=== PATIENT | female | born 1970 | race African-American/Black ===

== ENCOUNTER 2020-11-03 23:59 | Inpatient (IN) | payer MEDICAID ==
[~2020-11-03] VITALS: Ht 162.6 cm; Wt 76.7 kg
[2020-11-04] MEDS ORDERED: SODIUM CHLORIDE 0.9% 1,000 ML IV ONE (01:30)
[2020-11-04] MEDS ORDERED: INSULIN REGULAR (HUMULIN R) 300UNITS/3ML VIAL SUBCUT ONE (01:30)
[2020-11-04 02:01] LABS: BG BASE EXCESS -26.2 mmol/L (-2.0-2.0); BG CARBOXYHEMOGLOBIN 0.4 % (0.5-1.5); BG DEOXYHEMOGLOBIN 2.4 % (0.0-5.0); BG FRACTION INSPIRED OXYGEN 21; BG METHEMOGLOBIN 0.5 % (0.0-1.5); BG OXYGEN SATURATION 97.6 % (92.0-98.5); BG OXYHEMOGLOBIN 96.7 % (94.0-97.0); BG PCO2 12.3 mmHg (35.0-45.0); BG PH 7.009 (7.350-7.450); BG PO2 117.5 mmHg (75.0-100.0); BG SAMPLE SITE RIGHT BRACHIAL; BG TOTAL HEMOGLOBIN 15.4 g/dL (12.0-18.0); BG VENT MODE ROOM AIR
[2020-11-04] MEDS ORDERED: INSULIN REGULAR (DRIP) 100 UNITS in SODIUM CHLORIDE 0.9% 99 ML IV SCH ×2 (02:15→15:00)
[2020-11-04 02:21] LABS: BASOPHILS % 0.3 % (0.0-2.0); EOSINOPHILS % 0.1 % (0.0-5.0); HEMATOCRIT. 53.1 % (36.0-48.0); LYMPHOCYTES % 11.1 % (20.0-50.0); MEAN CORPUSCULAR HEMOGLOBIN 23.1 pg (28.0-32.0); MEAN CORPUSCULAR VOLUME 81.5 fL (81.0-99.0); MEAN PLATELET VOLUME 10.6 fl (7.4-10.4); NEUTROPHILS % 80.5 % (40.0-76.0); PLATELET 292 x1000/uL (130-400); RED BLOOD CELL COUNT 6.52 mill/uL (4.2-5.4); RED CELL DISTRIBUTION WIDTH 17.1 % (11.6-14.6)
[2020-11-04 02:25] LABS: CLARITY URINE CLEAR (CLEAR); COLOR URINE YELLOW (YELLOW); KETONES URINE 4+ (NEGATIVE); LEUKOCYTE ESTERASE URINE NEGATIVE (NEGATIVE); NITRITE URINE NEGATIVE (NEGATIVE); OCCULT BLOOD URINE 1+ (NEGATIVE); PROTEIN URINE 2+ (NEGATIVE); UROBILINOGEN URINE 0.2 E.U./dL (0.2-1.0)
[2020-11-04 02:28] LABS: CHLORIDE 98 mEq/L (98-107)
[2020-11-04 02:35] LABS: BETA HYDROXYBUTYRATE 7.5 mMol/L (0.0-0.3)
[2020-11-04 02:37] LABS: HCG SCREEN NEGATIVE
[2020-11-04] MEDS: POTASSIUM CHLORIDE 20MEQ TABLET SR PO SCH ×2 (05:38→06:46)
[2020-11-04] MEDS ORDERED: CLONIDINE 0.1MG TABLET PO PRN (14:45)
[2020-11-04] MEDS ORDERED: DEXTROSE 50% WATER 50ML SYRINGE IV PRN ×2 (14:45)
[2020-11-04] MEDS ORDERED: ACETAMINOPHEN 325MG TABLET PO PRN (14:45)
[2020-11-04] MEDS ORDERED: HYDROCODONE/ACETAMINOPHEN 5/325MG TABLET PO PRN (14:45)
[2020-11-04] MEDS ORDERED: MAGNESIUM/ALUMINUM HYDROXIDE/SIMETHICONE 30ML UDC PO PRN (14:45)
[2020-11-04] MEDS ORDERED: ONDANSETRON HCL 4MG/2ML INJ IV PRN (14:45)
[2020-11-04] MEDS: DEXT 5%/0.45% NACL 1000ML 1,000 ML IV SCH (15:17)
[2020-11-04 15:51] LABS: BG BASE EXCESS -17.4 mmol/L (-2.0-2.0); BG CARBOXYHEMOGLOBIN 0.9 % (0.5-1.5); BG DEOXYHEMOGLOBIN 1.8 % (0.0-5.0); BG FRACTION INSPIRED OXYGEN 21; BG HCO3 ACT 7.1 mmol/L (22.0-26.0); BG METHEMOGLOBIN 0.4 % (0.0-1.5); BG OXYGEN SATURATION 98.2 % (92.0-98.5); BG OXYHEMOGLOBIN 96.9 % (94.0-97.0); BG PCO2 16.3 mmHg (35.0-45.0); BG PH 7.255 (7.350-7.450); BG PO2 100.4 mmHg (75.0-100.0); BG SAMPLE SITE LEFT RADIAL; BG TOTAL HEMOGLOBIN 14.7 g/dL (12.0-18.0); BG VENT MODE ROOM AIR
[2020-11-04] MEDS: BLOOD SUGAR DIAGNOSTIC STRIP TEST SCH ×2 (16:30→21:52)
[2020-11-04] MEDS ORDERED: KCL 20MEQ/100ML PREMIX 100 ML IV SCH (18:00)
[2020-11-04] MEDS: OMEPRAZOLE 20MG CAPSULE EXTENDED RELEASE PO SCH (19:02)
[2020-11-04 20:35] LABS: CHLORIDE 109 mEq/L (98-107)
[2020-11-04] MEDS ORDERED: NALOXONE HCL 0.4MG/ML VIAL IV PRN (21:15)
[2020-11-05] VITALS (21 sets, daily range): BP systolic 95–133; BP diastolic 59–87
[2020-11-05] MEDS: BLOOD SUGAR DIAGNOSTIC STRIP TEST SCH ×24 (00:06→23:45)
[2020-11-05] MEDS: DEXT 5%/0.45% NACL 1000ML 1,000 ML IV SCH ×4 (01:32→22:45)
[2020-11-05 07:11] LABS: CHLORIDE 111 mEq/L (98-107)
[2020-11-05] MEDS: OMEPRAZOLE 20MG CAPSULE EXTENDED RELEASE PO SCH (07:19)
[2020-11-05 07:22] LABS: PHOSPHORUS 0.7 mg/dL (2.5-4.9)
[2020-11-05 12:16] LABS: BASOPHILS % 0.4 % (0.0-2.0); EOSINOPHILS % 1.1 % (0.0-5.0); HEMATOCRIT. 42.4 % (36.0-48.0); HEMOGLOBIN. 13.5 g/dL (12.0-16.0); LYMPHOCYTES % 21.1 % (20.0-50.0); MONOCYTES % 12.3 % (2.0-8.0); NEUTROPHILS % 65.1 % (40.0-76.0); RED BLOOD CELL COUNT 5.89 mill/uL (4.2-5.4); RED CELL DISTRIBUTION WIDTH 16.1 % (11.6-14.6)
[2020-11-05 12:17] LABS: CHLORIDE 111 mEq/L (98-107)
[2020-11-05 14:16] LABS: MEAN PLATELET VOLUME 10.3 fl (7.4-10.4)
[2020-11-05 14:17] LABS: PLATELET 178 x1000/uL (130-400)
[2020-11-05] MEDS ORDERED: DEXTROSE 50% WATER 50ML SYRINGE IV PRN ×2 (15:45)
[2020-11-05] MEDS ORDERED: INSULIN REGULAR (DRIP) 100 UNITS in SODIUM CHLORIDE 0.9% 100 ML IV SCH (16:02)
[2020-11-05 18:44] LABS: CHLORIDE 110 mEq/L (98-107)
[2020-11-05] MEDS ORDERED: SODIUM PHOS,M-BASIC-D-BASIC 30 MM in DEXT 5% WATER 500 ML IV NR (21:00)
[2020-11-05] MEDS: SODIUM BICARBONATE 100 MEQ in SODIUM CHLORIDE 0.45% 1,000 ML IV SCH (21:38)
[2020-11-05 22:34] LABS: BG BASE EXCESS -9.9 mmol/L (-2.0-2.0); BG CARBOXYHEMOGLOBIN 0.1 % (0.5-1.5); BG DEOXYHEMOGLOBIN 2.5 % (0.0-5.0); BG HCO3 ACT 13.3 mmol/L (22.0-26.0); BG OXYGEN SATURATION 97.5 % (92.0-98.5); BG OXYHEMOGLOBIN 97.4 % (94.0-97.0); BG PCO2 22.9 mmHg (35.0-45.0); BG PH 7.382 (7.350-7.450); BG PO2 90.2 mmHg (75.0-100.0); BG SAMPLE SITE RIGHT RADIAL; BG TOTAL HEMOGLOBIN 12.3 g/dL (12.0-18.0); BG VENT MODE ROOM AIR
[2020-11-06] VITALS (36 sets, daily range): BP systolic 91–127; BP diastolic 43–79
[2020-11-06] MEDS: BLOOD SUGAR DIAGNOSTIC STRIP TEST SCH ×13 (00:30→21:34)
[2020-11-06 05:56] LABS: CHLORIDE 112 mEq/L (98-107)
[2020-11-06 06:26] LABS: BASOPHILS % 0.3 % (0.0-2.0); EOSINOPHILS % 0.8 % (0.0-5.0); HEMATOCRIT. 35.4 % (36.0-48.0); HEMOGLOBIN. 11.1 g/dL (12.0-16.0); LYMPHOCYTES % 30.9 % (20.0-50.0); MEAN CORPUSCULAR HEMOGLOBIN 22.8 pg (28.0-32.0); MEAN CORPUSCULAR VOLUME 72.6 fL (81.0-99.0); MONOCYTES % 12.1 % (2.0-8.0); NEUTROPHILS % 55.9 % (40.0-76.0); PLATELET 206 x1000/uL (130-400); RED BLOOD CELL COUNT 4.88 mill/uL (4.2-5.4); RED CELL DISTRIBUTION WIDTH 15.7 % (11.6-14.6)
[2020-11-06] MEDS: SODIUM BICARBONATE 100 MEQ in SODIUM CHLORIDE 0.45% 1,000 ML IV SCH (06:33)
[2020-11-06] MEDS: OMEPRAZOLE 20MG CAPSULE EXTENDED RELEASE PO SCH (08:29)
[2020-11-06] MEDS ORDERED: POTASSIUM CHLORIDE INJ 40 MEQ in DEXT 5% WATER 250 ML IV NR (09:00)
[2020-11-06] MEDS ORDERED: *PATIENT'S OWN MEDICATION STORAGE XX SCH (09:45)
[2020-11-06 12:32] LABS: CHLORIDE 110 mEq/L (98-107)
[2020-11-06] MEDS ORDERED: DEXTROSE 50% WATER 50ML SYRINGE IV PRN ×2 (13:30→14:00)
[2020-11-06] MEDS ORDERED: INSULIN GLARGINE UD 100 UNITS/ML SYR SUBCUT NR (15:00)
[2020-11-06] MEDS ORDERED: LEVOFLOXACIN 500MG PREMIX 100 ML IV SCH (16:00)
[2020-11-06 17:55] LABS: CHLORIDE 111 mEq/L (98-107)
[2020-11-06 18:13] LABS: PHOSPHORUS 0.9 mg/dL (2.5-4.9)
[2020-11-06] MEDS: INSULIN LISPRO 100 UNITS/ML SUBCUT SCH ×2 (18:24→21:33)
[2020-11-06] MEDS ORDERED: POTASSIUM PHOS,M-BASIC-D-BASIC 30 MMOL in SODIUM CHLORIDE 0.9% 500 ML IV NR (20:00)
[2020-11-06] MEDS: MUPIROCIN 2% OINT 22GM NS SCH (21:33)
[2020-11-07] VITALS (14 sets, daily range): BP systolic 99–128; BP diastolic 52–82
[2020-11-07 05:23] LABS: CHLORIDE 110 mEq/L (98-107)
[2020-11-07 06:28] LABS: BASOPHILS % 0.5 % (0.0-2.0); EOSINOPHILS % 0.7 % (0.0-5.0); HEMATOCRIT. 32.8 % (36.0-48.0); HEMOGLOBIN. 10.4 g/dL (12.0-16.0); LYMPHOCYTES % 31.1 % (20.0-50.0); MEAN CORPUSCULAR HEMOGLOBIN 22.9 pg (28.0-32.0); MEAN CORPUSCULAR VOLUME 72.7 fL (81.0-99.0); MEAN PLATELET VOLUME 10.9 fl (7.4-10.4); MONOCYTES % 13.2 % (2.0-8.0); NEUTROPHILS % 54.5 % (40.0-76.0); PLATELET 208 x1000/uL (130-400); RED BLOOD CELL COUNT 4.52 mill/uL (4.2-5.4); RED CELL DISTRIBUTION WIDTH 15.3 % (11.6-14.6)
[2020-11-07] MEDS: OMEPRAZOLE 20MG CAPSULE EXTENDED RELEASE PO SCH (07:01)
[2020-11-07] MEDS: BLOOD SUGAR DIAGNOSTIC STRIP TEST SCH ×3 (07:32→18:07)
[2020-11-07] MEDS: INSULIN LISPRO 100 UNITS/ML SUBCUT SCH ×3 (08:25→18:10)
[2020-11-07] MEDS: MUPIROCIN 2% OINT 22GM NS SCH (08:25)
[2020-11-07] MEDS ORDERED: BLOO-1465 MT (16:15)
[2020-11-07] MEDS ORDERED: LANTUSUD SUBCUT (16:15)
[2020-11-07] MEDS ORDERED: LEVO500T89 MT (16:15)
[2020-11-07] MEDS ORDERED: MUPI22OI2 NS (16:15)
[2020-11-07] MEDS ORDERED: INSLIS SUBCUT (16:15)
[2020-11-07] MEDS ORDERED: INSULIN GLARGINE UD 100 UNITS/ML SYR SUBCUT SCH (22:00)
[2020-11-08] MEDS ORDERED: LEVOFLOXACIN 500MG TABLET PO SCH (11:00)
== END 2020-11-07 18:20 | disposition home or self-care (01) | DRG 420 ==
LOC: ER 23:59 → MICUSO 11-04 04:45 → 5EST 11-04 20:05 → MICUSO 11-05 04:23 → 5EST 11-05 10:27
PROVIDERS: ADMIT Internal Medicine; ATTEND Internal Medicine
DX: E11.10 Type 2 diabetes mellitus with ketoacidosis without coma (principal); E83.39 Other disorders of phosphorus metabolism; Z60.2 Problems related to living alone; L73.9 Follicular disorder, unspecified; L03.116 Cellulitis of left lower limb; E87.6 Hypokalemia; Z20.822 Contact with and (suspected) exposure to COVID-19; J44.9 Chronic obstructive pulmonary disease, unspecified; N76.2 Acute vulvitis; Z82.49 Family history of ischemic heart disease and other diseases of the circulatory system; Z91.19 Patient's noncompliance with other medical treatment and regimen; Z88.0 Allergy status to penicillin
CPT/HCPCS: 36415; 36600; 71045; 80048; 80053; 81003; 82010; 82040; 82375; 82805; 82962; 83036; 83605; 83735; 84100; 84134; 84145; 84484; 84703; 85025; 87426; 93005; 93970; 97162; 97165; 99285; J1815; J1956; J3480; J3490; J7030; J7040; J7050; J7060

== ENCOUNTER 2021-03-18 20:32 | Inpatient (IN) | payer MEDICAID ==
[~2021-03-18] VITALS: Ht 165.1 cm; Wt 64.4 kg
[~2021-03-18 20:32] MED LIST: BLOO-1465 MT; INSLIS SUBCUT; LANTUSUD SUBCUT; LEVO500T89 MT; MUPI22OI2 NS
[2021-03-18 21:28] LABS: BASOPHILS % 0.5 % (0.0-2.0); EOSINOPHILS % 0.3 % (0.0-5.0); HEMATOCRIT. 43.7 % (36.0-48.0); HEMOGLOBIN. 13.1 g/dL (12.0-16.0); LYMPHOCYTES % 32.5 % (20.0-50.0); MEAN CORPUSCULAR HEMOGLOBIN 24.2 pg (28.0-32.0); MEAN CORPUSCULAR VOLUME 80.7 fL (81.0-99.0); MEAN PLATELET VOLUME 10.6 fl (7.4-10.4); MONOCYTES % 8.4 % (2.0-8.0); NEUTROPHILS % 58.3 % (40.0-76.0); PLATELET 188 x1000/uL (130-400); RED BLOOD CELL COUNT 5.41 mill/uL (4.2-5.4); RED CELL DISTRIBUTION WIDTH 16.2 % (11.6-14.6)
[2021-03-18 21:30] LABS: CHLORIDE 88 mEq/L (98-107)
[2021-03-18 21:34] LABS: HCG SCREEN NEGATIVE
[2021-03-18] MEDS ORDERED: INSULIN REGULAR (DRIP) 100 UNITS in SODIUM CHLORIDE 0.9% 100 ML IV ONE (22:15)
[2021-03-18] MEDS ORDERED: SODIUM CHLORIDE 0.9% 1,000 ML IV ONE (22:15)
[2021-03-18 22:19] LABS: CLARITY URINE CLEAR (CLEAR); COLOR URINE YELLOW (YELLOW); KETONES URINE 2+ (NEGATIVE); LEUKOCYTE ESTERASE URINE NEGATIVE (NEGATIVE); NITRITE URINE NEGATIVE (NEGATIVE); OCCULT BLOOD URINE NEGATIVE (NEGATIVE); PROTEIN URINE NEGATIVE (NEGATIVE); SPECIFIC GRAVITY URINE 1.034 (1.005-1.030); UROBILINOGEN URINE 0.2 E.U./dL (0.2-1.0)
[2021-03-18 23:00] LABS: BG BASE EXCESS -6.3 mmol/L (-2.0-2.0); BG CARBOXYHEMOGLOBIN 2.4 % (0.5-1.5); BG DEOXYHEMOGLOBIN 4.7 % (0.0-5.0); BG FRACTION INSPIRED OXYGEN 21; BG HCO3 ACT 17.7 mmol/L (22.0-26.0); BG METHEMOGLOBIN 0.3 % (0.0-1.5); BG OXYGEN SATURATION 95.2 % (92.0-98.5); BG OXYHEMOGLOBIN 92.6 % (94.0-97.0); BG PCO2 30.5 mmHg (35.0-45.0); BG PH 7.382 (7.350-7.450); BG PO2 80.3 mmHg (75.0-100.0); BG SAMPLE SITE RIGHT RADIAL; BG TOTAL HEMOGLOBIN 11.3 g/dL (12.0-18.0); BG VENT MODE ROOM AIR
[2021-03-18 23:05] LABS: PHOSPHORUS 3.3 mg/dL (2.5-4.9)
[2021-03-19 00:21] LABS: CHLORIDE 101 mEq/L (98-107)
[2021-03-19 02:55] LABS: CHLORIDE 105 mEq/L (98-107)
[2021-03-19 04:36] LABS: CHLORIDE 107 mEq/L (98-107)
[2021-03-19] MEDS ORDERED: NALOXONE HCL 0.4MG/ML VIAL IV PRN (04:45)
[2021-03-19] MEDS ORDERED: DEXTROSE 50% WATER 50ML SYRINGE IV PRN (04:45)
[2021-03-19] MEDS ORDERED: POTASSIUM CHLORIDE 20MEQ TABLET SR PO NR (05:00)
[2021-03-19 06:12] LABS: CHLORIDE 107 mEq/L (98-107)
[2021-03-19] MEDS: BLOOD SUGAR DIAGNOSTIC STRIP TEST SCH ×4 (07:09→21:11)
[2021-03-19] MEDS: INSULIN LISPRO (MEDIUM DOSE) 100 UNITS/ML SUBCUT SCH ×4 (07:09→21:11)
[2021-03-19 08:00] VITALS: BP 129/70
[2021-03-19] MEDS ORDERED: ARIP2TAB3 MT (09:43)
[2021-03-19] MEDS ORDERED: INSULIN GLARGINE UD 100 UNITS/ML SYR SUBCUT SCH ×3 (10:00→22:00)
[2021-03-19] MEDS ORDERED: INFLUENZA VACCINE 05/PF 0.5 ML SYRINGE IM ONE (10:00)
[2021-03-19 10:08] VITALS: BP 129/70
[2021-03-19 10:28] LABS: *AMPHETAMINES SCREEN URINE NEGATIVE (NEGATIVE); *BARBITURATES SCREEN URINE NEGATIVE (NEGATIVE); *BENZODIAZEPINES SCREEN URINE NEGATIVE (NEGATIVE); *COCAINE SCREEN URINE NEGATIVE (NEGATIVE)
[2021-03-19 10:29] LABS: CANNABINOID URINE SCREEN PRESUMTIVE POSITIVE (NEGATIVE); METHADONE URINE SCREEN NEGATIVE (NEGATIVE); OPIATES URINE SCREEN NEGATIVE (NEGATIVE); PHENCYCLIDINE URINE SCREEN NEGATIVE (NEGATIVE)
[2021-03-19 12:00] VITALS: BP 94/63
[2021-03-19 16:00] VITALS: BP 105/72
[2021-03-19] MEDS ORDERED: INSULIN LISPRO 100 UNITS/ML SUBCUT SCH (17:30)
[2021-03-19 20:00] VITALS: BP 97/67
[2021-03-19] MEDS: HYDROCODONE/ACETAMINOPHEN 5/325MG TABLET PO PRN (21:09)
[2021-03-20] VITALS (7 sets, daily range): BP systolic 96–121; BP diastolic 55–78
[2021-03-20] MEDS: BLOOD SUGAR DIAGNOSTIC STRIP TEST SCH ×4 (07:30→20:50)
[2021-03-20] MEDS: INSULIN LISPRO (MEDIUM DOSE) 100 UNITS/ML SUBCUT SCH ×4 (08:00→20:52)
[2021-03-20] MEDS: INSULIN GLARGINE UD 100 UNITS/ML SYR SUBCUT SCH ×2 (10:14→20:52)
[2021-03-20] MEDS: INSULIN LISPRO 100 UNITS/ML SUBCUT SCH ×2 (11:53→17:30)
[2021-03-20] MEDS ORDERED: NEOM1PAC6 TP (15:21)
[2021-03-20] MEDS ORDERED: BACITRACIN 15GM TUBE TOP SCH (16:00)
[2021-03-20] MEDS: HYDROCODONE/ACETAMINOPHEN 5/325MG TABLET PO PRN (20:07)
[2021-03-21] VITALS: BP 108/73
[2021-03-21 04:00] VITALS: BP 114/79
[2021-03-21] MEDS: BLOOD SUGAR DIAGNOSTIC STRIP TEST SCH ×2 (07:30→12:30)
[2021-03-21] MEDS: INSULIN LISPRO (MEDIUM DOSE) 100 UNITS/ML SUBCUT SCH ×2 (08:00→13:00)
[2021-03-21] MEDS: INSULIN LISPRO 100 UNITS/ML SUBCUT SCH ×3 (09:02→13:39)
[2021-03-21] MEDS: INSULIN GLARGINE UD 100 UNITS/ML SYR SUBCUT SCH (10:35)
[2021-03-21 12:23] VITALS: BP 111/68
== END 2021-03-21 18:05 | disposition home or self-care (01) | DRG 420 ==
LOC: ER 20:32 → MICUSO 23:02 → ENRESERV 03-19 07:20 → CANRESERV 03-19 07:20 → ENRESERV 03-19 07:36 → 5EST 03-19 09:15
PROVIDERS: ADMIT Internal Medicine; ATTEND Internal Medicine
DX: E11.10 Type 2 diabetes mellitus with ketoacidosis without coma (principal); E87.8 Other disorders of electrolyte and fluid balance, not elsewhere classified; E87.1 Hypo-osmolality and hyponatremia; R07.89 Other chest pain; F17.210 Nicotine dependence, cigarettes, uncomplicated; J44.9 Chronic obstructive pulmonary disease, unspecified; T38.3X6A Underdosing of insulin and oral hypoglycemic [antidiabetic] drugs, initial encounter; Y92.89 Other specified places as the place of occurrence of the external cause; Z83.3 Family history of diabetes mellitus; Z88.0 Allergy status to penicillin; Z79.899 Other long term (current) drug therapy; Z79.4 Long term (current) use of insulin; Z82.49 Family history of ischemic heart disease and other diseases of the circulatory system
CPT/HCPCS: 36415; 36600; 71045; 80048; 80053; 80305; 81003; 82375; 82805; 82962; 83735; 84100; 84484; 84703; 85025; 90686; 93005; 93306; 99291; J1815; J7030; J7050

== ENCOUNTER 2022-01-25 01:51 | Emergency (ER) | payer MEDICAID ==
[~2022-01-25] VITALS: Ht 162.6 cm; Wt 48.8 kg
[~2022-01-25 01:51] MED LIST changes: +ARIP2TAB3 MT; -LEVO500T89 MT; -MUPI22OI2 NS; +NEOM1PAC6 TP
[2022-01-25] MEDS ORDERED: IBUPROFEN 600MG TABLET PO STA (06:15)
[2022-01-25 06:31] VITALS: BP 132/92
[2022-01-25] MEDS ORDERED: IBUP-2029 MT (06:55)
== END 2022-01-25 07:32 | disposition home or self-care (01) ==
LOC: ER 01:51
DX: S09.8XXA Other specified injuries of head, initial encounter (principal); W22.8XXA Striking against or struck by other objects, initial encounter; Y93.89 Activity, other specified; Y92.89 Other specified places as the place of occurrence of the external cause; Y99.8 Other external cause status; E11.9 Type 2 diabetes mellitus without complications; Z98.890 Other specified postprocedural states; Z79.899 Other long term (current) drug therapy
CPT/HCPCS: 82962; 99284